=== PATIENT | male | born 1990 | race Hispanic/Latino ===

== ENCOUNTER 2022-01-30 11:59 | Emergency (ER) | payer OTHER ==
[~2022-01-30] VITALS: Ht 175.3 cm; Wt 172.4 kg
[2022-01-30] MEDS ORDERED: PREDNISONE 20 MG TAB PO ONE (12:15)
[2022-01-30] MEDS ORDERED: METHOCARBAMOL 500 MG TAB PO ONE (12:15)
[2022-01-30] MEDS ORDERED: NAPROXEN 250 MG TAB PO ONE (12:15)
[2022-01-30 13:46] VITALS: BP 138/84
== END 2022-01-30 13:48 | disposition home or self-care (01) ==
LOC: ER 12:05
DX: M54.42 Lumbago with sciatica, left side (principal)
CPT/HCPCS: 72100; 99283; J7512